=== PATIENT | female | born 1950 | race Caucasian/White ===

== ENCOUNTER 2017-06-02 13:12 | Emergency (ER) | payer OTHER ==
[2017-06-02 13:12] VITALS: BMI 28.3
[2017-06-02 13:41] VITALS: BP 147/82; PULSE 59; RESP 14; TEMP 98.5; O2SAT 96
== END 2017-06-02 13:37 | disposition left against medical advice (07) ==
LOC: C.ER 13:12
DX: Z02.89 Encounter for other administrative examinations (principal); F11.10 Opioid abuse, uncomplicated

== ENCOUNTER 2017-06-04 12:50 | Emergency (ER) | payer OTHER ==
[2017-06-04 12:51] VITALS: BMI 28.3
[2017-06-04 12:57] VITALS: BP 135/71; PULSE 59; RESP 18; TEMP 98.3; O2SAT 99
--- NOTE | 2017-06-04 13:50 | C.PDOC ---
History Of Present Illness 67 year old female presents to the emergency room requesting detox. Patient has history of substance abuse. She offers no physical complaints at this time. Denies having suicidal or homicidal ideations. PMD: None Time Seen by Provider: 06/04/17 13:24 Chief Complaint (Nursing): Substance Abuse History Per: Patient History/Exam Limitations: no limitations Past Medical History Reviewed: Historical Data, Nursing Documentation, Vital Signs Vital Signs: Last Vital Signs Temp 98.3 F 06/04/17 12:55 Pulse 59 L 06/04/17 12:55 Resp 18 06/04/17 12:55 BP 135/71 06/04/17 12:55 Pulse Ox 99 06/04/17 13:58 - Medical History PMH: Anxiety, Bipolar Disorder, Diverticulitis, Gastritis, HTN Denies: Depression, Diabetes, Hepatitis, HIV, Chronic Kidney Disease, Seizures, Sexually Transmitted Disease Surgical History: Cholecystectomy - [facility] Procedures INJECT/INFUSE ELECTROLYT (10/10/14) INJECT/INFUSE NEC (10/10/14) Family History: States: No Known Family Hx - Social History Hx Tobacco Use: Yes (3 sticks/day) Hx Alcohol Use: No Hx Substance Use: Yes - Immunization History Hx Tetanus Toxoid Vaccination: No Hx Influenza Vaccination: Yes Hx Pneumococcal Vaccination: No Review Of Systems Except As Marked, All Systems Reviewed And Found Negative. Constitutional: Negative for: Fever, Chills Psych: Negative for: Suicidal ideation (and homicidal) Physical Exam - Physical Exam Appears: Well, Non-toxic, No Acute Distress Skin: Normal Color, Warm, Dry Head: Atraumatic, Normacephalic Eye(s): bilateral: Normal Inspection Oral Mucosa: Moist Neck: Normal ROM Chest: Symmetrical Respiratory: No Accessory Muscle Use Extremity: Normal ROM, No Deformity Neurological/Psych: Oriented x3, Normal Speech ED Course And Treatment O2 Sat by Pulse Oximetry: 99 (RA) Pulse Ox Interpretation: Normal Medical Decision Making Medical Decision Making: Time: 13:17 Plan: No detox beds are available today. Patient seen by painting trades worker and provided with outpatient resources. Instructed to return to ER for any worsening symptoms. Disposition Counseled Patient/Family Regarding: Diagnosis, Need For Followup - Disposition Referrals: Alcoholics Anonymous [Outside] [facility] [Outside] [facility] [Outside] Disposition: HOME/ ROUTINE Disposition Time: 14:01 Condition: STABLE Additional Instructions: Follow up with outpatient services Return to ED if any increase symptoms Instructions: Narcotic Abuse (ED) Forms: [facility] (Cuban) - POA Present On Arrival: None - Clinical Impression Clinical Impression: Substance abuse - PA / WHOLESALE ACCOUNT MANAGER / Resident Statement MD/DO has reviewed & agrees with the documentation as recorded. - Scribe Statement The provider has reviewed the documentation as recorded by the Scribe (Mariana Valenzuela) All medical record entries made by the Scribe were at my direction and personally dictated by me. I have reviewed the chart and agree that the record accurately reflects my personal performance of the history, physical exam, medical decision making, and the department course for this patient. I have also personally directed, reviewed, and agree with the discharge instructions and disposition.
== END 2017-06-04 14:02 | disposition home or self-care (01) ==
LOC: C.ER 12:50
DX: F19.10 Other psychoactive substance abuse, uncomplicated (principal)

== ENCOUNTER 2017-06-14 17:14 | Inpatient (IN) | payer MEDICAID, OTHER ==
[2017-06-14 17:14] VITALS: BMI 28.3
--- NOTE | 2017-06-14 18:18 | C.PDOC ---
Addendum entered and electronically signed by Rachel Zhong DO 06/14/17 18:57 : - PA / SOFTBALL COACH / Resident Statement / has examined the patient and agrees with the treatment plan. Original Note: History Of Present Illness <Jazmín Philip - Last Filed: 06/14/17 18:23> <Rachel Zhong - Last Filed: 06/14/17 18:56> CC: "I'm here for detox" HPI: 67 year old female with past medical history of heroin abuse, muscular atrophy, HTN, sigmoid diverticulosis, CHRISTA, depression and panic attacks presents to the ED for detox. Patient states she has tried to stop heroin before on her own and at a hospital but the withdrawal symptoms were very extreme she could not. She states she has never entered into a detox program. She denies nausea, vomiting, diarrhea, constipation, fever, headache, chest pain , palpitations or shortness of breath. PMD: Dr. Shannan Carrera Medical History: muscular atrophy (patient uses a wheel chair for to walk long distances), HTN, sigmoid diverticulosis, CHRISTA, depression and panic attacks, gastritis, mitral valve prolapse Surgical history: umbilical hernia repair; c-sections x2; bladder lift x2; hysterectomy; left ovarian cyst removal; rectal prolapse repair; cholecystectomy ; bowel pacemaker Medications: Patient does not know complete list of medications: Meclizine 25mg po daily; Clozapine; Metroprolol tartrate 25mg po daily; sometimes takes Valsartan 160mg po Allergies: NKDA Social History: lives with ; 10 bags of heroin IV per day for 20 years; denies alcohol; smoking for 17 years 4 cigarettes per day (Jazmín Philip) History Per: Patient History/Exam Limitations: no limitations Modifying Factor(s): None <Jazmín Philip - Last Filed: 06/14/17 18:23> <Rachel Zhong - Last Filed: 06/14/17 18:56> Time Seen by Provider: 06/14/17 17:37 Chief Complaint (Nursing): Substance Abuse Past Medical History - Medical History PMH: Anxiety, Bipolar Disorder, Depression, Diverticulitis, Gastritis, HTN Denies: Diabetes, Hepatitis, HIV, Chronic Kidney Disease, Seizures, Sexually Transmitted Disease Surgical History: Cholecystectomy (partial) - Social History Hx Tobacco Use: Yes (3 sticks/day) Hx Alcohol Use: No Hx Substance Use: Yes - Immunization History Hx Tetanus Toxoid Vaccination: No Hx Influenza Vaccination: Yes Hx Pneumococcal Vaccination: No <Jazmín Philip - Last Filed: 06/14/17 18:23> - Medical History PMH: Anxiety, Bipolar Disorder, Depression, Diverticulitis, Gastritis, HTN Denies: Diabetes, Hepatitis, HIV, Chronic Kidney Disease, Seizures, Sexually Transmitted Disease Surgical History: Cholecystectomy Family History: States: No Known Family Hx - Social History Hx Tobacco Use: Yes Hx Alcohol Use: No Hx Substance Use: Yes - Immunization History Hx Tetanus Toxoid Vaccination: No Hx Influenza Vaccination: Yes Hx Pneumococcal Vaccination: No <Rachel Zhong - Last Filed: 06/14/17 18:56> Vital Signs: Last Vital Signs Temp 98.3 F 06/14/17 17:27 Pulse 85 06/14/17 17:27 Resp 18 06/14/17 17:27 BP 134/69 06/14/17 17:27 Pulse Ox 92 L 06/14/17 18:23 - [facility] Procedures INJECT/INFUSE ELECTROLYT (10/10/14) INJECT/INFUSE NEC (10/10/14) Review Of Systems Constitutional: Negative for: Fever, Chills, Sweats, Weakness Cardiovascular: Negative for: Chest Pain, Palpitations, Edema Respiratory: Negative for: Cough, Shortness of Breath Gastrointestinal: Negative for: Nausea, Vomiting, Abdominal Pain, Diarrhea, Constipation Genitourinary: Negative for: Dysuria Psych: Positive for: Anxiety <Jazmín Philip - Last Filed: 06/14/17 18:23> Physical Exam - Physical Exam Appears: Well Skin: Normal Color Head: Atraumatic Eye(s): bilateral: Normal Inspection Oral Mucosa: Moist Cardiovascular: Rhythm Regular Respiratory: Normal Breath Sounds, No Decreased Breath Sounds, No Accessory Muscle Use, No Rales, No Rhonchi, No Stridor, No Wheezing Gastrointestinal/Abdominal: Normal Exam, Bowel Sounds, Soft, No Tenderness Back: Other (pacemaker device on left lower back ) Extremity: No Tenderness, No Pedal Edema, No Calf Tenderness Neurological/Psych: Oriented x3, Normal Speech, Normal Cognition, Normal Cranial Nerves <Jazmín Philip - Last Filed: 06/14/17 18:23> ED Course And Treatment O2 Sat by Pulse Oximetry: 92 <Jazmín Philip - Last Filed: 06/14/17 18:23> Medical Decision Making <Jazmín Philip - Last Filed: 06/14/17 18:23> <Rachel Zhong - Last Filed: 06/14/17 18:56> Medical Decision Making: Heroin Detox - f/u alcohol serum - f/u UDS - f/u CMP, CBC, UA (Jazmín Philip) Disposition <Jazmín Philip - Last Filed: 06/14/17 18:23> - Disposition Disposition Time: 19:00 <Rachel Zhong - Last Filed: 06/14/17 18:56> - Disposition Condition: STABLE Forms: [facility] (Swedish) - Clinical Impression Clinical Impression: Heroin dependence Physician Patient Turnover Patient Signed Over To: Kimberly Hanna Handoff Comments: pending blood work, UA, UDS results, crisis evaluation, disposition <Rachel Zhong - Last Filed: 06/14/17 18:56>
[2017-06-14 19:25] LABS: BASO # 0.1 K/uL (0.0-0.2); EOS # 0.2 K/uL (0.0-0.7); EOS % 2.4 % (0.0-4.0); LYMPH # 2.1 K/uL (1.0-4.3); MEAN PLATELET VOLUME 8.8 fL (7.2-11.7); MONO # 0.5 K/uL (0.0-0.8); RED CELL DISTRIBUTION WIDTH 13.8 % (11.5-14.5)
[2017-06-14 19:29] LABS: BASO % 0.7 % (0.0-2.0); HEMOGLOBIN 15.6 g/dL (11.0-16.0); LYMPH % 23.8 % (20.0-40.0); MEAN CELL VOLUME 92.2 fL (81.0-99.0); MEAN CORPUSCULAR HGB CONC 33.6 g/dL (33.0-37.0); MONO % 5.2 % (0.0-10.0); NEUT # 5.9 K/uL (1.8-7.0); NEUT % 67.9 % (50.0-75.0); NRBC % 0.1 % (0.0-2.0); RBC 5.05 Mil/uL (3.80-5.20); WHITE BLOOD COUNT 8.8 K/uL (4.8-10.8)
[2017-06-14 19:38] LABS: ALB/GLOB RATIO 0.9 (1.0-2.1); ALBUMIN 4.4 g/dL (3.5-5.0); ALT/SGPT 32 U/L (9-52); AST/SGOT 28 U/L (14-36); BLOOD UREA NITROGEN 16 mg/dL (7-17); GFR AFRICAN-AMERICAN > 60; GFR NON-AFRICAN AMERICAN 50
[2017-06-14 19:43] LABS: BARBITURATES, UR NEGATIVE (NEGATIVE); BENZODIAZEPINES, UR NEGATIVE (NEGATIVE); PHENCYCLIDINE, UR NEGATIVE (NEGATIVE)
[2017-06-14 19:44] LABS: SQUAMOUS EPITHIAL 5 /hpf (0-5); URINE BACTERIA FEW (<OCC); URINE BILIRUBIN 1+ (NEGATIVE); URINE BLOOD NEGATIVE (NEGATIVE); URINE CALCIUM OXALATE CRYSTALS MOD /hpf (<OCC); URINE CLARITY Hazy (Clear); URINE COLOR Amber (YELLOW); URINE GLUCOSE (UA) NORMAL (Normal); URINE LEUKOCYTE ESTERASE NEG Leu/uL (Negative); URINE NITRATE NEGATIVE (NEGATIVE); URINE PROTEIN 2+ mg/dL (NEGATIVE)
[2017-06-14 20:00] LABS: OPIATES, UR POSITIVE (NEGATIVE)
--- NOTE | 2017-06-14 21:09 | PCM.BM ---
<Linda Key - Last Filed: 06/14/17 21:08> Treatment Plan Problems - Problems identified on initial assessmt Potential for opiate withdrawal Date Initiated: 06/14/17 Time Initiated: 21:08 Assessment reference: NA Status: Active Treatment assets and liabiliti Patient Assests: negotiates basic needs, cognitively intact Patient Liabilities: substance abuse (opiates), medical problems (Muscular atrophy, HTN,) - Milieu Protocol Maintain good personal hygiene: daily Encourage regular showers, daily Remind patient to perform daily oral care, daily Assist patient to perform ADL's Conduct patient checks and document Observation sheet: Q15 minutes Maintain personal safety: every shift Educate patient to report safety concerns to staff, every shift Monitor environment for contraband/sharps Medication safety: Monitor for expected outcome, potential side effects: every shift, Assess barriers to learning: every shift, Assess readiness for medication education: every shift <Gurwinder Luther - Last Filed: 06/16/17 00:38> - Diagnosis (1) Opioid use disorder, severe, dependence Status: Acute Interventions: 06/16/17 00:39 * Assess 7x/week regarding severity of withdrawal * Educate regarding risks, benefits, side effects and alternatives of medications * Use Motivational Interviewing for abstinence * Use CBT for relapse prevention * Medication management for withdrawal symptoms * Encourage medication assisted treatment * <Lexy Mendoza - Last Filed: 06/16/17 11:24> Family Contact Family contact: Patient agrees to contact, Telephone contact initiated by staff Family contact name: Dennis Family contacted how many times per week?: 3 - Goals for Treatment Patient goals for treatment: Complete detox and attend IOP. Discharge/Continuing Care - Education Needs Education Needs: Patient Medication, Patient Diagnosis/Disease Process, Patient Coping Skills, Patient Anger Management skills, Patient Placement options, Patient Community resources (spouse is in early recovery also.), Significant Other Medication, Significant Other Diagnosis/Disease Process, Significant Other Coping Skills, Significant Other Anger Management skills, Significant Other Placement options, Significant Other Community resources - Discharge Discharge Criteria: No longer exhibiting s/s of withdrawal, Reduction of target symptoms Discharge to:: Home, With Family - Treatment Team Participation Patient/Family/SO Statement: 06/16/17 11:24 "I wanna go to IOP not inpatient." Discussed with Family/SO: Yes Was Patient/Family/SO present at Treatment Team Meeting: Yes
[2017-06-15] MEDS ORDERED: Aluminum Hydroxide/Magnesium Hydroxide Susp (30 mL) PO PRN (10:24)
--- NOTE | 2017-06-15 13:28 | PCM.PSYCH ---
Initial Psychiatric Evaluation - Initial Psychiatric Evaluation Type of Admission: Voluntary Legal Status: Capacity Chief Complaint (in patient's own words): " I want to detox." History of Present Illness and Precipitating Events: The patient is a 67 year old female who lives with her boyfriend of 35 years. She has 4 adult children and is currently unemployed. The patient reports that she shoots 10 bags of heroin a day. She denies sharing needle and reports last using yesterday around 2pm. She began using 25 years ago after she had a surgery and was in so much pain, my neighbor came over and gave me something and told me it would take the pain away but I didnt know what it was. The patient denies using other drugs and alcohol. She reports that she smokes 2- 3 cigarettes a day. The patient reports that he boyfriend is also a user but was here in detox last week. The patient reports that she has been to a methadone maintenance program 3-4 years ago for 2 months, her dose was 60mg. The pt reports yawning, eye tearing, chills, and belly cramping. Detox Hx: denies Rehab Hx:denies Medical Hx:HTH, muscular atrophy, diverticular disease Medications: metoprolol, Mirtazapine, clonazepam Psych Hx: depression, anxiety Fam psych Hx: denies Family substance abuse Hx: denies Current Medications: Active Medications Generic Name Dose Route Start Last Admin Trade Name Freq PRN Reason Stop Dose Admin Al Hydrox/Mg Hydrox/Simethicone 30 ml 06/15/17 10:24 Maalox 30 Ml PO TID PRN Indigestion / Heartburn Clonazepam 0.5 mg 06/15/17 14:00 Klonopin PO 06/16/17 10:01 TID SAJAN Clonazepam 0.5 mg 06/16/17 18:00 Klonopin PO 06/17/17 10:01 BID SAJAN Clonidine HCl 0.1 mg 06/15/17 10:24 Catapres PO Q8 PRN COWS Score More or Equal to 5 Fluoxetine HCl 10 mg 06/16/17 10:00 Prozac PO DAILY SAJAN Gabapentin 100 mg 06/15/17 14:00 Neurontin PO TID SAJAN Gemfibrozil 600 mg 06/15/17 18:00 Lopid PO BID SAJAN Hydroxyzine HCl 25 mg 06/14/17 22:10 02/14/18 06:47 Atarax PO 25 mg Q6 PRN Administration Anxiety Loperamide HCl 2 mg 06/15/17 10:24 Imodium PO Q8 PRN Diarrhea Meclizine HCl 25 mg 06/15/17 18:00 Antivert PO BID SAJAN Mirtazapine 15 mg 06/15/17 22:00 Remeron PO HS SAJAN Ondansetron HCl 4 mg 06/15/17 10:24 Zofran Tab PO Q8 PRN Nausea/Vomiting Trazodone HCl 50 mg 06/14/17 22:12 06/14/17 22:18 Desyrel PO 50 mg HS PRN Administration insomnia Past Psychiatric History - Past Psychiatric History Pertinent Medical Hx (Current Medical&Sleep Prob, Allergies): Allergies Allergy/AdvReac Type Severity Reaction Status Date / Time No Known Allergies Allergy Verified 06/04/17 12:57 Unobtainable 06/14/17 Review of Systems - Constitutional Constitutional: Chills, Weakness - EENT Eyes: Other (excessive tearing) - Gastrointestinal Gastrointestinal: Abdominal Pain, Cramping - Neurological Neurological: Weakness Additional comments: yawning - Psychiatric Psychiatric: Anxiety, Depression Mental Status Examination - Personal Presentation Personal Presentation: Looks stated age - Affect Affect: Broad - Motor Activity Motor Activity: Calm - Reliability in Providing Information Reliability in Providing Information: Good - Speech Speech: Organized - Mood Mood: Neutral - Formal Thought Process Formal Thought Process: No Impairment - Obsessions/Compulsions Obsessions: None Compulsions: None - Cognitive Functions Orientation: Person, Place, Situation, Time Sensorium: Alert Attention/Concentration: Attentive Abstract Thinking: [place] Estimate of Intelligence: Average Judgement: Intact, as evidence by: Good judgement, Intact, as evidence by: Insight regarding need for hospitalization Memory: Recent intact, as evidence by: Ability to recall events of the day, Remote intact, as evidenced by: Abilit to recall sig. life events - Risk Risk: Withdrawal - Strength & Assets Inventory Strength & Assets Inventory: Cooperative - Limitations Additional comments: boyfriend is a user DSM 5 DX - DSM 5 DSM 5 Diagnosis: Opioid Use Disorder - severe Opioid Withdrawal Anxiety Disorder Depression - Recommended/Plan of Treatment Treatment Recommendations and Plan of Treatment: Opioid detox Gabapentin for augmentation As needed medications All risks, benefits and alternatives of the meds discussed, and the pt agreed and understood. Attend groups and activities Supportive therapy and psychoeducation [place] for abstinence CBT for relapse prevention Encourage MAT Refer to rehab or IOP, and self-help groups 35 min Projected ELOS: 4-5 Prognosis: good with treatment Discharge Plan and Discharge Criteria: Outpatient Rehab and MAT
--- NOTE | 2017-06-16 13:31 | PCM.PYCHPN ---
Psychiatric Progress Note - Psychiatric Progress Note Patient seen today, length of contact: 15 min Patient Chief Complaint: " I am anxious" Problems Identified/Issues Discussed: The pt is seen, chart reviewed, case discussed with staff. The pt is compliant with medications. Symptoms improving and patient needs more time to stabilize. After care discussed, support and psychoeducation given. The patient reports that she feels anxious. She reports waking up in the middle of the night feeling anxious and reports withdrawal symptoms of: body aches, belly cramping, and decreased appetite. Medication Change: Yes Medical Record Reviewed: Yes Mental Status Examination - Cognitive Function Orientation: Person, Place, Situation, Time Memory: Intact Attention: WNL Concentration: WNL Association: WNL Fund of Knowledge: [facility] Decription of patient's judgement and insights: good - Mood Mood: Anxious - Affect Affect: Broad - Speech Speech: Appropriate - Language Language: Word Retrieval - Formal Thought Process Formal Thought Process: No Impairment - Suicidal Ideation Suicidal Ideation: No - Homicidal Ideation Homicidal Ideation: No Goal/Treatment Plan - Goal/Treatment Plan Need for Continued Stay: Remain at risks for inpatient hospitalization, Discharge may exacerbated symptoms Progress Toward Problem(s) and Goals/Treatment Plan: Opioid detox Gabapentin for augmentation As needed medications All risks, benefits and alternatives of the meds discussed, and the pt agreed and understood. Attend groups and activities Supportive therapy and psychoeducation [place] for abstinence CBT for relapse prevention Encourage MAT Refer to rehab or IOP, and self-help groups Estimated Date of D/C: 06/19/17
[2017-06-17] MEDS: Pantoprazole 20 mg EC Tab PO SCH (12:29)
--- NOTE | 2017-06-17 14:19 | PCM.PYCHPN ---
Psychiatric Progress Note - Psychiatric Progress Note Patient seen today, length of contact: 15 min Patient Chief Complaint: " I am having anxiety" Problems Identified/Issues Discussed: The pt is seen, chart reviewed, case discussed with staff. The pt is compliant with medications. Symptoms improving and patient needs more time to stabilize. After care discussed, support and psychoeducation given. The patient reports that she is doing okay but she still feels anxious. She reports waking up at 3 am this morning due to anxiety. She says that she has a history of panic attacks. She also reports feeling of cramping after eating. Medication Change: Yes Medical Record Reviewed: Yes Mental Status Examination - Cognitive Function Orientation: Person, Place, Situation, Time Memory: Intact Attention: WNL Concentration: WNL Association: WNL Fund of Knowledge: WN Decription of patient's judgement and insights: good - Mood Mood: Anxious - Affect Affect: Broad - Speech Speech: Appropriate - Language Language: Word Retrieval - Formal Thought Process Formal Thought Process: No Impairment - Suicidal Ideation Suicidal Ideation: No - Homicidal Ideation Homicidal Ideation: No Goal/Treatment Plan - Goal/Treatment Plan Need for Continued Stay: Remain at risks for inpatient hospitalization, Discharge may exacerbated symptoms Progress Toward Problem(s) and Goals/Treatment Plan: Opioid detox Gabapentin for augmentation As needed medications All risks, benefits and alternatives of the meds discussed, and the pt agreed and understood. Attend groups and activities Supportive therapy and psychoeducation [place] for abstinence CBT for relapse prevention Encourage MAT Refer to rehab or IOP, and self-help groups Estimated Date of D/C: 06/19/17 - Smoking Cessation Smoking Cessation Initiated: No Reason for not providing: patient does not smoke
[2017-06-17 21:21] VITALS: RESP 18
[2017-06-18] MEDS: Pantoprazole 20 mg EC Tab PO SCH (10:27)
--- NOTE | 2017-06-18 21:40 | PCM.PYCHPN ---
Psychiatric Progress Note - Psychiatric Progress Note Patient seen today, length of contact: 15 min Patient Chief Complaint: "My withdrawal symptoms are getting better with the medication" Problems Identified/Issues Discussed: The pt is seen, chart reviewed, case discussed with staff. The pt stated that her withdrawal symptoms are getting better after taking medication. The pt is compliant with medications and reports no side-effects. Symptoms are improving but needs more time to stabilize. After care discussed, support and psychoeducation given Medication Change: Yes Medical Record Reviewed: Yes Mental Status Examination - Cognitive Function Orientation: Person, Place, Situation, Time Memory: Intact Attention: WNL Concentration: WNL Association: WN Fund of Knowledge: [facility] Decription of patient's judgement and insights: good/good She is calm and cooperative - Mood Mood: Anxious - Affect Affect: Broad - Speech Speech: Appropriate - Language Language: Word Retrieval - Formal Thought Process Formal Thought Process: No Impairment Psychotic Thoughts and Behaviors: denied - Suicidal Ideation Suicidal Ideation: No Plan: denied - Homicidal Ideation Homicidal Ideation: No Plan: denied Goal/Treatment Plan - Goal/Treatment Plan Need for Continued Stay: Remain at risks for inpatient hospitalization, Discharge may exacerbated symptoms Progress Toward Problem(s) and Goals/Treatment Plan: continue current treatment. Therapy in milieu. Estimated Date of D/C: 06/19/17 - Smoking Cessation Smoking Cessation Initiated: Yes
[2017-06-19 06:37] VITALS: O2SAT 97
[2017-06-19 08:13] VITALS: BP 154/90; PULSE 90; TEMP 98.1
[2017-06-19] MEDS: Pantoprazole 20 mg EC Tab PO SCH (09:06)
--- NOTE | 2017-06-19 09:33 | PCM.PYCHDC ---
Mental Status Examination - Mental Status Examination Orientation: Person, Place, Situation, Time Memory: Intact Mood: Neutral Affect: Broad Speech: Appropriate Attention: WNL Concentration: WNL Association: WNL Fund of Knowledge: WNL Formal Thought Process: No Impairment Description of patient's judgement and insight: good/good She is calm and cooperative and smiling appropriately Psychotic Thoughts and Behaviors: denied Suicidal Ideation: No Current Homicidal Ideation?: No Plan: denied SI, HI, intent or plan Discharge Summary - Discharge Note Reason for Hospitalization: The patient is a 67 year old female who lives with her boyfriend of 35 years. She has 4 adult children and is currently unemployed. The patient reports that she shoots 10 bags of heroin a day. She denies sharing needle and reports last using yesterday around 2pm. She began using 25 years ago after she had a surgery and was in so much pain, my neighbor came over and gave me something and told me it would take the pain away but I didnt know what it was. The patient denies using other drugs and alcohol. She reports that she smokes 2- 3 cigarettes a day. The patient reports that he boyfriend is also a user but was here in detox last week. The patient reports that she has been to a methadone maintenance program 3-4 years ago for 2 months, her dose was 60mg. The pt reports yawning, eye tearing, chills, and belly cramping. Detox Hx: denies Rehab Hx:denies Medical Hx:HTH, muscular atrophy, diverticular disease Medications: metoprolol, Mirtazapine, clonazepam Psych Hx: depression, anxiety Fam psych Hx: denies Family substance abuse Hx: denies Consultations:: List each consultation separately and include: 1. Reason for request. 2. Findings. 3. Follow-up Summary of Hospital Course include:: 1. Description of specific treatment plan utilized for patients during their course of treatmen. 2. Summarize the time- course for resolution of acute symptoms and/or regressed behaviors. 3. Describe issues identified and worked on during hospitalization. 4. Describe medication utilized. 5. Describe medical problems identified and treated. 6. Reassessment of suicide risk Summary of Hospital Course: The pt was admitted and started on detox treatment with psychotherapy, support, psychoeducation and medications. PA and CBT techniques were used. The pt was compliant with the treatment. The pt attended groups and activities, as well as milieu therapy. All the risks and benefits of medications were discussed and the patient understood and agreed. The pt improved with the treatment. Pt appreciate the treatment and care which was provided to him. At the time of d/c pt denied any depresive symptoms, manic symptoms. He denied any SI, HI, intent or plan. Pt denied any perceptual disturbances. He had behavioral issues. Psychoeducation was provided to the pt to be compliant with the medication, treatment plan and f/u plan after the discharge. After care discussed with the patient. - Diagnosis (1) Opioid withdrawal Status: Resolved (2) Opioid use disorder, severe, dependence Status: Resolved - Final Diagnosis (DSM 5) Condition upon Discharge: STABLE Disposition: HOME/ ROUTINE Follow-up Treatment Plan: Continue below medications after discharge. Follow after care plan as discussed. Use relapse prevention copying skills Return to ER or call 911 if suicidal, homicidal or symptoms relapse. Stay away from stress, alcohol and drugs. See primary doctor once a year. Time spend 28 minutes Prescriptions/Medication Reconciliation: Escitalopram [Lexapro] 5 mg PO DAILY 30 Days #30 tab Gabapentin [Neurontin] 300 mg PO BID 60 Days #60 cap Meclizine [Meclizine*] 25 mg PO BID #30 tab Mirtazapine [Remeron] 30 mg PO HS 30 Days #30 tab traZODone [Desyrel] 50 mg PO HS PRN 30 Days #15 tab PRN Reason: insomnia - Smoking Cessation Smoking Cessation Medication prescribed: Yes - Antipsychotic Medications Pt discharged on 2 or more routine antipsychotic medications: No
== END 2017-06-19 10:25 | disposition home or self-care (01) | DRG 745 ==
LOC: C.ER 17:14 → C.7D 20:35
PROC: HZ2ZZZZ Detoxification Services for Substance Abuse Treatment (ICD-10-PCS; principal; 2017-06-14)
PROC: HZ59ZZZ Individual Psychotherapy for Substance Abuse Treatment, Supportive (ICD-10-PCS; 2017-06-14)
PROC: HZ46ZZZ Group Counseling for Substance Abuse Treatment, Psychoeducation (ICD-10-PCS; 2017-06-14)
PROC: GZ3ZZZZ Medication Management (ICD-10-PCS; 2017-06-14)
DX: F11.23 Opioid dependence with withdrawal (principal); F31.9 Bipolar disorder, unspecified; F17.210 Nicotine dependence, cigarettes, uncomplicated; F41.1 Generalized anxiety disorder; F91.9 Conduct disorder, unspecified; F41.0 Panic disorder [episodic paroxysmal anxiety]; I10 Essential (primary) hypertension; I34.1 Nonrheumatic mitral (valve) prolapse; Z90.710 Acquired absence of both cervix and uterus

== ENCOUNTER 2017-07-24 20:55 | Emergency (ER) | payer MEDICAID, OTHER ==
[2017-07-24 20:56] VITALS: BMI 28.3
--- NOTE | 2017-07-24 21:32 | C.PDOC ---
History Of Present Illness 67 y/o female presents to the ED complaining of a headache with associated dizziness, onset 2 hours go. Family member also reports patient was confused an hour before, but this is now resolved. Denies any fever, chills, visual changes , shortness of breath, nausea, vomiting, neck pain or stiffness. On further discussion patient reports Hx of headaches for years now, on and off. PMD: Shannan Robison Time Seen by Provider: 07/24/17 21:10 Chief Complaint (Nursing): Dizziness/Lightheaded History Per: Patient History/Exam Limitations: no limitations Onset/Duration Of Symptoms: Hrs Current Symptoms Are (Timing): Still Present Past Medical History Reviewed: Historical Data, Nursing Documentation, Vital Signs Vital Signs: Last Vital Signs Temp 97.6 F 07/24/17 21:54 Pulse 65 07/24/17 21:54 Resp 16 07/24/17 21:54 BP 119/61 07/24/17 21:54 Pulse Ox 94 L 07/24/17 21:54 - Medical History PMH: Anxiety, Bipolar Disorder, Depression, Diverticulitis, Gastritis, HTN Denies: Diabetes, Hepatitis, HIV, Chronic Kidney Disease, Seizures, Sexually Transmitted Disease Surgical History: Cholecystectomy (partial) - [facility] Procedures DETOXIFICATION SERVICES FOR SUBSTANCE ABUSE TREATMENT (06/14/17) GROUP SUPERVISOR SPEECH FOR SUBSTANCE ABUSE TREATMENT, PSYCHOEDUCATION (06/14/17) INDIV PSYCHOTHERAPY FOR SUBSTANCE ABUSE TREATMENT, SUPPORT (06/14/17) INJECT/INFUSE ELECTROLYT (10/10/14) INJECT/INFUSE NEC (10/10/14) MEDICATION MANAGEMENT (06/14/17) - Social History Hx Tobacco Use: Yes (3 sticks/day) Hx Alcohol Use: No Hx Substance Use: Yes - Immunization History Hx Tetanus Toxoid Vaccination: No Hx Influenza Vaccination: Yes Hx Pneumococcal Vaccination: No Review Of Systems Except As Marked, All Systems Reviewed And Found Negative. Constitutional: Negative for: Fever, Chills Eyes: Negative for: Vision Change Respiratory: Negative for: Shortness of Breath Gastrointestinal: Negative for: Nausea, Vomiting Musculoskeletal: Negative for: Neck Pain Neurological: Positive for: Confusion (now resolved), Headache, Dizziness. Negative for: Weakness, Numbness, Incoordination, Change in Speech Physical Exam - Physical Exam Appears: Non-toxic, No Acute Distress, Other (appears alert, conscious) Skin: Normal Color, Warm, Dry Head: Atraumatic, Normacephalic Eye(s): bilateral: Normal Inspection, PERRL, EOMI Nose: Normal Oral Mucosa: Moist Neck: Normal ROM, No Midline Cervical Tenderness, Supple, No Other (meningeal signs) Chest: Symmetrical Cardiovascular: Rhythm Regular, No Murmur Respiratory: Normal Breath Sounds, No Accessory Muscle Use, No Wheezing Gastrointestinal/Abdominal: Soft, No Tenderness, No Distention Extremity: Bilateral: Atraumatic, Normal Color And Temperature, Normal ROM Neurological/Psych: Oriented x3, Normal Speech, Normal Cranial Nerves, Normal Motor, Normal Sensation, No Other (focal deficits) Gait: Steady ED Course And Treatment - Laboratory Results Result Diagrams: 07/24/17 21:53 07/24/17 21:53 ECG: Interpreted By Me, Viewed By Me ECG Rhythm: Sinus Bradycardia ECG Interpretation: Normal, No Acute Changes Interpretation Of ECG: Sinus bradycardia, normal tracings Rate From EC - CT Scan/US CT Head Other Rad Studies (CT/US): Read By Radiologist, Radiology Report Reviewed CT/US Interpretation: FINDINGS: Brain: Extensive bilateral white matter hypoattenuation, nonspecific but may represent a chronic. small vessel ischemic change, which would be advanced for age. Correlate with history. Vascular. calcification. No hemorrhage. No edema. Ventricles: No hydrocephalus. Bones: Skull is intact. Sinuses: No acute sinusitis. Mastoid air cells: No mastoid effusion. IMPRESSION: Extensive bilateral white matter hypoattenuation, nonspecific but may represent a chronic small. vessel ischemic change, which would be advanced for age. Correlate with history. Correlate clinically. Followup as warranted. Thank you for allowing us to participate in the care of your patient. Dictated and Authenticated by: Yee Almaraz MD. 07/24/2017 10:46 PM Eastern Time ([place] & [place]) Progress Note: Patient persisted to be alert and conscious, refused to be admitted for observation , Sttes she will see her doctor tomorrow. Reevaluation Time: 23:00 Medical Decision Making Medical Decision Making: Prior records reviewed: Patient with history of alcohol and opiate abuse, and recently received detox in June. Time: 21:16 Initial Plan: --Basic blood work --Urine drug screen --Chest x-ray --EKG --CT Head W/O contrast Disposition Counseled Patient/Family Regarding: Diagnosis - Disposition Referrals: [facility] [Outside] Disposition: HOME/ ROUTINE Disposition Time: 22:56 Condition: STABLE Instructions: Polysubstance Abuse (DC) Forms: [facility] (Tuvaluan), Gen Discharge Inst Chinese Print Language: MALDIVIAN - POA Present On Arrival: None - Clinical Impression Clinical Impression: Substance abuse - Scribe Statement The provider has reviewed the documentation as recorded by the Scribe (Mariana Valenzuela) Provider Attestation: All medical record entries made by the Scribe were at my direction and personally dictated by me. I have reviewed the chart and agree that the record accurately reflects my personal performance of the history, physical exam, medical decision making, and the department course for this patient. I have also personally directed, reviewed, and agree with the discharge instructions and disposition.
[2017-07-24 21:55] LABS: BASO % 0.7 % (0.0-2.0); EOS # 0.2 K/uL (0.0-0.7); EOS % 2.5 % (0.0-4.0); HEMOGLOBIN 14.4 g/dL (11.0-16.0); LYMPH # 1.9 K/uL (1.0-4.3); LYMPH % 29.3 % (20.0-40.0); MEAN CELL VOLUME 91.7 fL (81.0-99.0); MEAN CORPUSCULAR HEMOGLOBIN 31.3 pg (27.0-31.0); MEAN CORPUSCULAR HGB CONC 34.1 g/dL (33.0-37.0); MONO # 0.4 K/uL (0.0-0.8); MONO % 6.7 % (0.0-10.0); NEUT % 60.8 % (50.0-75.0); NRBC % 0.1 % (0.0-2.0); RBC 4.62 Mil/uL (3.80-5.20); WHITE BLOOD COUNT 6.6 K/uL (4.8-10.8)
[2017-07-24 22:07] LABS: ALBUMIN 4.2 g/dL (3.5-5.0); ALT/SGPT 14 U/L (9-52); AST/SGOT 20 U/L (14-36); BLOOD UREA NITROGEN 14 mg/dL (7-17); CALCIUM 9.3 mg/dl (8.6-10.4); GFR AFRICAN-AMERICAN > 60; GFR NON-AFRICAN AMERICAN 55
[2017-07-24 22:36] LABS: BARBITURATES, UR NEGATIVE (NEGATIVE); BENZODIAZEPINES, UR NEGATIVE (NEGATIVE); PHENCYCLIDINE, UR NEGATIVE (NEGATIVE)
[2017-07-24 22:37] LABS: OPIATES, UR POSITIVE (NEGATIVE)
--- NOTE | 2017-07-24 22:47 | CT ---
EXAM: CT Head Without Intravenous Contrast CLINICAL HISTORY: 67 years old, female; Pain; Headache TECHNIQUE: Axial computed tomography images of the head/brain without intravenous contrast. All CT scans at this facility use one or more dose reduction techniques, viz.: automated exposure control; ma/kV adjustment per patient size (including targeted exams where dose is matched to indication; i.e. head); or iterative reconstruction technique. Coronal and sagittal reformatted images were created and reviewed. COMPARISON: No relevant prior studies available. FINDINGS: Brain: Extensive bilateral white matter hypoattenuation, nonspecific but may represent a chronic small vessel ischemic change, which would be advanced for age. Correlate with history. Vascular calcification. No hemorrhage. No edema. Ventricles: No hydrocephalus. Bones: Skull is intact. Sinuses: No acute sinusitis. Mastoid air cells: No mastoid effusion. IMPRESSION: Extensive bilateral white matter hypoattenuation, nonspecific but may represent a chronic small vessel ischemic change, which would be advanced for age. Correlate with history. Correlate clinically. Followup as warranted.
[2017-07-24 23:07] VITALS: BP 111/54; PULSE 59; RESP 17; TEMP 98.1; O2SAT 96
--- NOTE | 2017-07-25 13:23 | RAD ---
PROCEDURE: CHEST RADIOGRAPH, 1 VIEW HISTORY: confusion COMPARISON: Chest radiograph dated 05/15/2012 FINDINGS: LUNGS: Clear. PLEURA: No pneumothorax or pleural fluid seen. CARDIOVASCULAR: Normal. OSSEOUS STRUCTURES: Unchanged. VISUALIZED UPPER ABDOMEN: Normal. OTHER FINDINGS: None. IMPRESSION: No active disease.
--- NOTE | 2017-07-25 23:24 | CARD ---
APPROVED REPORT EKG Measurement Heart [id number] <Conclusion> Sinus bradycardia Otherwise normal ECG
== END 2017-07-24 23:08 | disposition home or self-care (01) ==
LOC: C.ER 20:55
DX: F19.10 Other psychoactive substance abuse, uncomplicated (principal); I10 Essential (primary) hypertension; F17.210 Nicotine dependence, cigarettes, uncomplicated